=== PATIENT | female | born 1970 | race Caucasian/White ===

== ENCOUNTER 2016-12-29 19:15 | Inpatient (IN) | payer OTHER ==
[~2016-12-29] VITALS: Ht 162.6 cm; Wt 88.5 kg
--- NOTE | 2016-12-29 19:20 | NUR ---
TO BED 6 A 46 YO FEMALE PATIENT C/O SHARP RLQ ABDOMINAL PAIN STARTED THIS AFTERNOON, -N/V/D. PLACED ON VS MONITORING. AMBULATORY WITH STEADY GAIT. GOWNED. COMFORT MEASURES RENDERED. DR LU AT BEDSIDE TO [facility].
[2016-12-29] MEDS ORDERED: HYDROMORPHONE INJ 2 MG/ML DISP.SYRIN IV ONE (19:30)
[2016-12-29] MEDS ORDERED: IV NS 0.9% 1,000 ML BAG IV ONE (19:30)
[2016-12-29] MEDS ORDERED: ONDANSETRON HCL/PF 4 MG/2 ML VIAL IVP ONE (19:30)
[2016-12-29] MEDS ORDERED: HYDROMORPHONE INJ 2 MG/ML DISP.SYRIN ONE (19:50)
[2016-12-29] MEDS ORDERED: ONDANSETRON HCL/PF 4 MG/2 ML VIAL ONE (19:50)
--- NOTE | 2016-12-29 19:55 | NUR ---
started a saline lock on the left hand g20, blood drawn and sent to lab.
[2016-12-29 19:57] LABS: BASOPHILS % (AUTO) 0.1 % (0.0-2.0); EOSINOPHILS # (AUTO) 0.1 /CMM (0.0-0.7); EOSINOPHILS % (AUTO) 0.6 % (0.0-6.0); HEMATOCRIT 42 % (33-45); LYMPHOCYTES # (AUTO) 1.2 /CMM (0.8-4.8); LYMPHOCYTES % (AUTO) 9.5 % (20.0-44.0); MEAN CORPUSCULAR HEMOGLOBIN 30 PG (26.0-33.0); MEAN CORPUSCULAR HGB CONC 34 g/dl (31.0-36.0); MEAN CORPUSCULAR VOLUME 88 fL (82-100); MONOCYTES % (AUTO) 7.5 % (2.0-12.0); NEUTROPHILS # (AUTO) 10.6 /CMM (1.8-8.9); NEUTROPHILS % (AUTO) 82.3 % (43.0-81.0); PLATELET COUNT (AUTO) 140 /CMM (150-450); RDW COEFFICIENT OF VARIATION 12.9 (11.5-15.0); WHITE BLOOD COUNT (AUTO) 12.9 K/uL (4.3-11.0)
--- NOTE | 2016-12-29 20:00 | NUR ---
Medicated patient as ordered by Dr Cintron.
--- NOTE | 2016-12-29 20:05 | NUR ---
JOSETTE MCKEON AT BEDSIDE.
[2016-12-29 20:20] LABS: ALBUMIN 3.6 g/dL (3.4-5.0); BILIRUBIN,TOTAL 0.2 mg/dL (0.2-1.0); CALCIUM, SERUM 9.4 mg/dL (8.5-10.1); CREATININE 0.6 mg/dL (0.6-1.3); POTASSIUM 3.7 mmol/L (3.5-5.1); TOTAL PROTEIN, SERUM 7.1 g/dL (6.4-8.2)
[2016-12-29 20:30] LABS: APPEARANCE,URINE Clear (CLEAR); BILIRUBIN,URINE Negative (NEGATIVE); BLOOD, URINE Negative Ery/uL (NEGATIVE); COLOR,URINE Yellow (YELLOW); KETONES,URINE Negative (NEGATIVE); LEUKOCYTE ESTERASE ,URINE Negative (NEGATIVE); NITRITE, URINE Negative (NEGATIVE); PROTEIN,URINE Negative (NEGATIVE); UGLUCOSE Negative (NEGATIVE); UROBILINOGEN,URINE 0.2 EU/dL (0.2)
--- NOTE | 2016-12-29 20:43 | NUR ---
PATIENT TO CT.
--- NOTE | 2016-12-29 20:48 | NUR ---
BACK FROM RADIOLOGY.
[2016-12-29] MEDS ORDERED: PIPERACILLIN /TAZOBACTAM 3.375 G VIAL IV ONE (21:44)
[2016-12-29] MEDS ORDERED: IV NS 0.9% 1,000 ML IV ONE (22:00)
[2016-12-29] MEDS ORDERED: PIPERACILLIN /TAZOBACTAM 3.375 G in IV D5W 50 ML IV ONE (22:00)
--- NOTE | 2016-12-29 22:01 | NUR ---
DR. MINA WILSON.
--- NOTE | 2016-12-29 22:09 | NUR ---
DR LU ON THE PHONE WITH DR ENRIQUEZ.
--- NOTE | 2016-12-29 22:30 | NUR ---
report given to Mikaela ADAM for konstantin.
[2016-12-29] MEDS ORDERED: CHOL10002 PO (22:42)
[2016-12-29] MEDS ORDERED: PANT40TA2 PO (22:42)
[2016-12-29] MEDS ORDERED: ANAS1TAB8 PO (22:42)
[2016-12-29] MEDS ORDERED: CALC-36 PO (22:42)
[2016-12-29] MEDS ORDERED: PARO10TA26 PO (22:42)
[2016-12-29] MEDS ORDERED: GABA-534 PO (22:42)
[2016-12-29 23:00] VITALS: BP 130/73
--- NOTE | 2016-12-29 23:00 | NUR ---
Transferred patien to ms 205-2, no incident noted.
[2016-12-29] MEDS ORDERED: Z GUARD REMEDY 2 OZ OINT TP PRN (23:30)
[2016-12-29] MEDS ORDERED: MAGNESIUM HYDROXIDE 30 ML UDC PO PRN (23:30)
[2016-12-29] MEDS ORDERED: MORPHINE SULFATE INJ 2 MG/ML DISP.SYRIN IV PRN (23:30)
[2016-12-29] MEDS ORDERED: MAG HYDROX/AL HYDROX/SIMETH 30 ML UDC PO PRN (23:30)
[2016-12-29] MEDS ORDERED: ACETAMINOPHEN 325 MG TABLET PO PRN (23:30)
[2016-12-29] MEDS ORDERED: ZOLPIDEM TARTRATE 5 MG TABLET PO PRN (23:30)
[2016-12-29] MEDS ORDERED: ONDANSETRON HCL/PF 4 MG/2 ML VIAL IVP PRN (23:30)
[2016-12-29] MEDS ORDERED: HYDROCODONE/APAP 5/325MG 1 EACH TABLET PO PRN (23:30)
--- NOTE | 2016-12-29 23:39 | NUR ---
MS/RN OPENING NOTES RECEIVE PT FROM [facility] VIA W/C PT WALKS TO BED, ADMIT TO M/S PT. TOLERATING ROOM AIR 100%, BREATHING EVEN AND UNLABORED, NO APPARENT SIGN OF DISTRESS. HEAD TO TOE ASSESSMENT IS DONE SKIN IS INTACT. PT APPEARS CALM. BED IN LOW/LOCKED POSITION WITH CALL LIGHT IN REACH. SIDE RAILS UPX2 AND BED ALARM ON FOR SAFETY. WILL CONTINUE TO MONITOR PT.
[2016-12-29] MEDS: IV D5/0.45 NACL 1,000 ML IV PRN (23:59)
[2016-12-30] VITALS (8 sets, daily range): BP systolic 109–127; BP diastolic 60–78
--- NOTE | 2016-12-30 00:29 | NUR ---
PAGED DR FRUIT WORKER SPOKE TO DR. ANDREW SARKAR CLARIFIED ORDERED OF MORPHINE PER DR. MORALES CHANGE HER ORDER D/C THE MORPHINE 2 MG IV AND CHANGE TO DILAUDID 1 MG IV Q6 PAIN LEVEL 8-10 NOTED AND CARRIED OUT
[2016-12-30] MEDS ORDERED: HYDROMORPHONE 1 MG/1 ML DISP.SYRIN IV PRN (00:30)
[2016-12-30] MEDS ORDERED: HYDROMORPHONE 1 MG/1 ML DISP.SYRIN ONE (00:30)
--- NOTE | 2016-12-30 01:06 | NUR ---
0010 KIRILL GOFF CALLED SPOKE TO HIM AND ORDERED GIVE PATIENT ZOSYN 3.375 GM IV Q6 AND CONSENT FOR LAPAROSCOPIC VS OPEN APPENDECTOMY NOTED AND CARRIED OUT
[2016-12-30] MEDS ORDERED: SUMA100T16 PO (01:28)
[2016-12-30] MEDS ORDERED: PIPERACILLIN /TAZOBACTAM 3.375 G VIAL IV ONE (05:38)
[2016-12-30] MEDS: PIPERACILLIN /TAZOBACTAM 3.375 G in IV D5W 50 ML IV SCH ×4 (05:49→23:41)
[2016-12-30 06:35] LABS: INR 0.92 (0.87-1.13); PROTHROMBIN TIME 9.6 SECS (9.5-12.7)
--- NOTE | 2016-12-30 06:37 | NUR ---
MS RN CLOSING NOTES PATIENT COMFORTABLY ASLEEP AND EASILY AWAKEN, HOB ELEVATED FOR BETTER LUNG EXPANSION. PATIENT DENIES PAIN AT THIS TIME. RESPIRATIONS EVEN AND UNLABORED. NO S/S OF ACUTE DISTRESS, NO SOB, AFEBRILE, IN STABLE CONDITION. TOLERATING ROOM AIR 02 SAT 99% ALL NURSING CARE RENDERED, NEEDS ATTENDED AND ANTICIPATED, KEPT CLEAN AND DRY AND COMFORTABLE, GOOD SKIN ARE PROVIDED. FREQUENT VISUAL CHECK DONE FOR SAFETY EVERY 2 HOURS. SAFE HAZARD FREE ENVIRONMENT PROVIDED. CALL LIGHT WITHIN EASY TO REACH, ON LOW BED AT ALL TIMES TO ENSURE SAFETY, WILL ENDORSE TO THE NEXT SHIFT CONTINUE PLAN OF CARE.
[2016-12-30 06:46] LABS: BASOPHILS % (AUTO) 0.3 % (0.0-2.0); EOSINOPHILS % (AUTO) 0.4 % (0.0-6.0); HEMATOCRIT 35 % (33-45); HEMOGLOBIN 11.9 g/dL (11.5-14.8); LYMPHOCYTES # (AUTO) 1.4 /CMM (0.8-4.8); LYMPHOCYTES % (AUTO) 14.5 % (20.0-44.0); MEAN CORPUSCULAR HEMOGLOBIN 30 PG (26.0-33.0); MEAN CORPUSCULAR HGB CONC 34 g/dl (31.0-36.0); MEAN CORPUSCULAR VOLUME 87 fL (82-100); MONOCYTES # (AUTO) 0.9 /CMM (0.1-1.30); MONOCYTES % (AUTO) 9.9 % (2.0-12.0); NEUTROPHILS # (AUTO) 7.1 /CMM (1.8-8.9); NEUTROPHILS % (AUTO) 74.9 % (43.0-81.0); PLATELET COUNT (AUTO) 162 /CMM (150-450); RDW COEFFICIENT OF VARIATION 13.3 (11.5-15.0); RED BLOOD CELL COUNT(AUTO) 4.05 MIL/uL (4.0-5.2); WHITE BLOOD COUNT (AUTO) 9.4 K/uL (4.3-11.0)
[2016-12-30 06:58] LABS: ALBUMIN 3.2 g/dL (3.4-5.0); BILIRUBIN,TOTAL 0.5 mg/dL (0.2-1.0); CALCIUM, SERUM 8.4 mg/dL (8.5-10.1); CREATININE 0.7 mg/dL (0.6-1.3); MAGNESIUM 1.9 mg/dL (1.8-2.4); PHOSPHORUS 2.6 mg/dL (2.5-4.9); POTASSIUM 3.7 mmol/L (3.5-5.1); TOTAL PROTEIN, SERUM 6.4 g/dL (6.4-8.2)
[2016-12-30 07:03] LABS: CREATINE KINASE MB 0.2 ng/mL (0-3.6); THYROID STIMULATING HORMONE 1.518 uIU/mL (0.358-3.74)
--- NOTE | 2016-12-30 07:24 | NUR ---
MS RN OPENING NOTES PATIENT RECEIVED IN BED AWAKE IN NO ACUTE SIGNS OF DISTRESS. A/O X 4 AND VERBALLY RESPONSIVE. PATIENT PICKED -UP BY [facility]. STAFF FOR LAPAROSCOPIC VS APPENDECTOMY OPERATION AT 0715. V/S CHECKED: BP 114/62mmhg, P 69, R 18, T 98F AND SP02 98%. PT REQUESTED THAT SHE WANTS TO TALK FIRTS TO DR ENRIQUEZ BEFORE OPERATION AND ALSO FOR DR ENRIQUEZ TO SPEAK TO HER SISTER SAMANTHA AFTER OPERATION. [facility] STAFF WHO TRANSPORTED PT TO O.. AWARE AND SAME PLACED NOTES ON PT'S CHART. PT REQUESTED ALSO TO CALL ED THAT SHE WENT FOR OPERATION, CALLED ED AND SPOKE TO HER AND SAID THAT HE WILL RELAY THE MESSAGE TO HER .
[2016-12-30] MEDS ORDERED: ROCURONIUM BROMIDE 50 MG/5 ML ONE (07:41)
[2016-12-30] MEDS ORDERED: MIDAZOLAM HCL 2 MG/2ML VIAL ONE (07:41)
[2016-12-30] MEDS ORDERED: FENTANYL PF 100MCG/2ML AMPUL ONE ×2 (07:41→09:27)
[2016-12-30 08:30] LABS: APPEARANCE,URINE SL CLOUDY (CLEAR); BILIRUBIN,URINE NEGATIVE (NEGATIVE); BLOOD, URINE NEGATIVE Ery/uL (NEGATIVE); COLOR,URINE YELLOW (YELLOW); KETONES,URINE NEGATIVE (NEGATIVE); LEUKOCYTE ESTERASE ,URINE NEGATIVE (NEGATIVE); NITRITE, URINE NEGATIVE (NEGATIVE); PH,URINE 6.5 (5.0-8.0); PROTEIN,URINE NEGATIVE (NEGATIVE); UGLUCOSE NEGATIVE (NEGATIVE); UROBILINOGEN,URINE 0.2 EU/dL (0.2)
--- NOTE | 2016-12-30 10:04 | NUR ---
RN NOTES PATIENT RETURNED FROM SURGERY S/P APPENDECTOMY. AWAKE, ALERT AND ORIENTED. INCISION SITE ON THE ABDOMEN INTACT WITH SMALL HEMATOMA AROUND BUT NO ACTIVE BLEEDING NOTED. PT WITH NO C/O PAIN AT THIS TIME. V/S CHECKED: 108/67MMHG, P 99, R 18 T 98F AND SP02 94%. WILL CONTINUE TO MONITOR PT.
--- NOTE | 2016-12-30 13:03 | NUR ---
RN NOTES PATIENT C/O NAUSEA, PRN ZOFRAN 4MG/2ML GIVEN ORDERED. WILL CONTINUE TO MONITOR.
[2016-12-30] MEDS ORDERED: HYDROMORPHONE INJ 2 MG/ML DISP.SYRIN IV PRN (18:00)
--- NOTE | 2016-12-30 19:00 | NUR ---
MS/RN OPENING NOTES PT RECEIVED IN BED. A/O X 4. IN STABLE CONDITION. BREATHING EVEN AND UNLABORED, TOLERATING ROOM AIR 99% NO APPARENT SIGN OF DISTRESS. BED IN LOW/LOCKED POSITION WITH CALL LIGHT IN REACH. SIDE RAILS UPX2 AND BED ALARM ON FOR SAFETY. WILL CONTINUE TO MONITOR
--- NOTE | 2016-12-30 19:10 | NUR ---
MS RN CLOSING NOTES PATIENT RESTING IN BED WITH SISTERS AT BEDSIDE. A/O X 3. ABLE TO VOICED OUT NEEDS AND CONCERNS. S/P APPENDECTOMY TODAY, INCISION SITES INTACT WITH NO ACTIVE BLEEDING NOTED. ON ROOM AIR, BREATHING EVEN WITH NO SOB NOTED. IV ACCESS ON LEFT HAND INTACT AND PATENT WITH D5 1/2 NS AT 75ML/HR INFUSING WELL, NO SIGNS OF INFILTRATION NOTED. KEPT BED IN LOW/LOCKED POSITION WITH CALL LIGHT IN REACH. SIDE RAILS UP X2 AND BED ALARM ON FOR SAFETY. ALL NEEDS AND CARE ATTENDED WELL. WILL ENDORSED TO [employer]NACE OPERATOR HELPER NURSE FOR TOMY. .
[2016-12-30] MEDS: IV D5/0.45 NACL 1,000 ML IV PRN (23:41)
--- NOTE | 2016-12-31 00:38 | NUR ---
MS RN NOTES S/P APPENDECTOMY 12/29/16 WITH NO ACTIVE BLEEDING NOTED
--- NOTE | 2016-12-31 01:59 | NUR ---
MS RN NOTES PT SEEN AND NOTED WITH IV INFILTRATION EDEMA AT THE L HAND, REMOVED ACCESS TOLERATED PROCEDURE WELL. ELEVATED TO REDUCE EDEMA. PER PATIENT REQUEST SHE WANTS THE IV FLUIDS TO BE HOLD OF THIS MOMENT AND RESUME LATER MORNING AND SHE WANTED TO TAKE A REST DESPITE EXPLAINING RISKS AND BENEFITS OFFERED 3 TIMES STILL REFUSED TO HAVE ANOTHER LINE PER PT SHE WANTS IT IN THE MORNING.
[2016-12-31 02:27] VITALS: BP 122/70
[2016-12-31 06:00] VITALS: BP 110/58
--- NOTE | 2016-12-31 06:13 | NUR ---
IV WAS PUT TO L WRIST 22 G TOLERATED PROCEDURE WELL WITH GOOD BLOOD RETURN
[2016-12-31] MEDS: PIPERACILLIN /TAZOBACTAM 3.375 G in IV D5W 50 ML IV SCH ×3 (06:14→17:43)
--- NOTE | 2016-12-31 06:45 | NUR ---
MS RN CLOSING NOTES PT ASLEEP EASILY AWAKEN, HEAD OF BED ELEVATED FOR BETTER LUNG EXPANSION. IN STABLE CONDITION. TOLERATING ROOM AIR 02 SAT AT 99%. NO S/S OF ACUTE DISTRESS, NO SOB, DENIES PAIN AT THIS TIME. ICE PACK AT THE LOWER ABDOMEN, ON ATB WITH NO A/R NOTED. S/P SX WITH NO ACTIVE BLEEDING, DERMABOND IN PLACE. ENCOURAGE PT DEEP BREATHING. RESPIRATIONS EVEN AND UNLABORED. PATIENT DENIES PAIN AT THIS TIME. AFEBRILE, ALL NURSING CARE RENDERED, NEEDS ATTENDED AND ANTICIPATED, KEPT CLEAN AND DRY AND COMFORTABLE, GOOD SKIN CARE PROVIDED. SAFETY HAZARD FREE ENVIRONMENT.. CALL LIGHT WITHIN EASY TO REACH, ON LOW BED AT ALL TIMES TO ENSURE SAFETY, WILL ENDORSE TO THE NEXT SHIFT CONTINUE PLAN OF CARE.
--- NOTE | 2016-12-31 07:20 | NUR ---
MS RN OPENING NOTES PATIENT RECEIVED AWAKE IN BED IN NO ACUTE SIGNS OF DISTRESS. A/O X 3. VERBALLY RESPONSIVE, NO C/O PAIN OR DISCOMFORTS AT THIS TIME. S/P APPENDECTOMY YESTERDAY, INCISION SITES INTACT WITH NO ACTIVE BLEEDING NOTED. ENCOURAGED TO DO DEEP BREATHING EXERCISES AND AMBULATE TOLERATED. ON ROOM AIR, BREATHING EVEN WITH NO SOB NOTED. IV ACCESS ON RIGHT WRIST G#22 INTACT AND PATENT WITH D5 1/2 NS @ 75ML/HR INFUSING WELL, NO SIGNS OF INFILTRATION NOTED. BED IN LOW/LOCKED POSITION. BEDSIDE TABLE AND CALL LIGHT WITHIN REACH OF PT. SIDE RAILS UP X2 FOR SAFETY. WILL CONTINUE TO MONITOR ACCORDINGLY.
[2016-12-31 08:00] VITALS: BP 116/60
[2016-12-31 08:24] LABS: HEMATOCRIT 38 % (33-45); HEMOGLOBIN 12.5 g/dL (11.5-14.8); MEAN CORPUSCULAR HEMOGLOBIN 29 PG (26.0-33.0); MEAN CORPUSCULAR HGB CONC 33 g/dl (31.0-36.0); MEAN CORPUSCULAR VOLUME 88 fL (82-100); PLATELET COUNT (AUTO) 157 /CMM (150-450); RDW COEFFICIENT OF VARIATION 13.1 (11.5-15.0); RED BLOOD CELL COUNT(AUTO) 4.27 MIL/uL (4.0-5.2); WHITE BLOOD COUNT (AUTO) 7.7 K/uL (4.3-11.0)
[2016-12-31 08:49] LABS: ALBUMIN 3.2 g/dL (3.4-5.0); BILIRUBIN,TOTAL 0.6 mg/dL (0.2-1.0); CALCIUM, SERUM 8.9 mg/dL (8.5-10.1); CREATININE 0.8 mg/dL (0.6-1.3); POTASSIUM 3.3 mmol/L (3.5-5.1); TOTAL PROTEIN, SERUM 6.9 g/dL (6.4-8.2)
[2016-12-31 09:18] LABS: LYMPHOCYTES % (MANUAL) 32 % (16-48); MONOCYTES % (MANUAL) 7 % (0-11.0); NEUTROPHILS % (MANUAL) 61 (42-76)
[2016-12-31] MEDS ORDERED: POTASSIUM CHLORIDE 20 MEQ TAB.PRT.SR PO SCH (11:00)
--- NOTE | 2016-12-31 12:34 | NUR ---
RN NOTES PATIENT LOW LEVEL OF K 3.3, DESKTOP MANAGER HUGGINS ORDERED TO GIVE 20MEQ KDUR TAB X1 DOSE. ORDERED CARRIED OUT.
[2016-12-31 16:00] VITALS: BP 111/64
--- NOTE | 2016-12-31 17:10 | NUR ---
RN DISCHARGED NOTES PT DISCHARGED HOME IN STABLE CONDITION. LEFT UNIT AMBULATORY ACCOMPANIED BY SISTER. A/O X4 IN NO ACUTE SIGNS OF DISTRESS, NO C/O PAIN OR DISCOMFORTS VOICED DURING DISCHARGE. V/S TAKEN AND RECORDED. PHOTO OF SKIN ON THE ABDOMEN TAKEN AND FILED ON CHART. BELONGINGS CHECKED, COUNTED AND SIGNED FORM. HEALTH TEACHINGS GIVEN AND VERBALIZED UNDERSTANDING. MD AND NURSE QUARTER BACKER AWARE OF DISCHARGE.
== END 2016-12-31 17:30 | disposition home or self-care (01) | DRG 854 ==
LOC: ER 19:16 → MEDSG2 22:34
PROVIDERS: ADMIT Internal Medicine; ATTEND Internal Medicine
PROC: 0DTJ4ZZ Resection of Appendix, Percutaneous Endoscopic Approach (ICD-10-PCS; principal; 2016-12-30 07:30)
DX: A41.9 Sepsis, unspecified organism (principal); E44.0 Moderate protein-calorie malnutrition; D68.59 Other primary thrombophilia; E83.51 Hypocalcemia; E87.1 Hypo-osmolality and hyponatremia; E88.09 Other disorders of plasma-protein metabolism, not elsewhere classified; K35.80 Unspecified acute appendicitis; E66.9 Obesity, unspecified; M81.0 Age-related osteoporosis without current pathological fracture; Z85.3 Personal history of malignant neoplasm of breast; Z68.33 Body mass index [BMI] 33.0-33.9, adult; G43.909 Migraine, unspecified, not intractable, without status migrainosus
CPT/HCPCS: 36415; 71010-TC; 76856-TC; 80048-TC; 80053-TC; 80061-TC; 80076-TC; 81000-TC; 82150-TC; 82553-TC; 82746; 83540-TC; 83690-TC; 83735-TC; 84100-TC; 84443-TC; 84702-TC; 84703-TC; 85025-TC; 85730-TC; 87040-TC; 87081-TC; 87086-TC; 88304-TC; 88305-TC; 93307-TC; A4606; J1100; J1170; J1885; J2250; J2405; J2543; J2704; J2710; J3010; J3490; J7030; J7060; Z7610